=== PATIENT | male | born 1965 | race African-American/Black ===

== ENCOUNTER 2024-03-17 01:41 | Emergency (ER) | payer OTHER ==
[~2024-03-17] VITALS: Ht 185.4 cm; Wt 72.6 kg
[2024-03-17 02:02] VITALS: BP 143/88; PULSE 64; RESP 20; TEMP 98.2; O2SAT 97
[2024-03-17 03:26] VITALS: BP 143/88; PULSE 64; RESP 20; TEMP 98.2; O2SAT 97
== END 2024-03-17 03:25 | disposition home or self-care (01) ==
LOC: MED 01:41
DX: S39.011A Strain of muscle, fascia and tendon of abdomen, initial encounter (principal); X50.0XXA Overexertion from strenuous movement or load, initial encounter; Y93.89 Activity, other specified; Y92.89 Other specified places as the place of occurrence of the external cause; Y99.0 Civilian activity done for income or pay
CPT/HCPCS: 99281